=== PATIENT | female | born 1945 | race Caucasian/White ===

== ENCOUNTER 2019-10-03 18:15 | Emergency (ER) | payer OTHER ==
[~2019-10-03] VITALS: Ht 162.6 cm; Wt 66.2 kg
[2019-10-03] MEDS ORDERED: CHLORTHALIDONE25 MG (18:47)
[2019-10-03] MEDS ORDERED: COZAAR50 MG (18:47)
[2019-10-03] MEDS ORDERED: ATIVAN0.5 M1 PO (20:03)
[2019-10-03] MEDS ORDERED: BACTRIM DS TAB1 EACH PO (20:03)
== END 2019-10-03 20:35 | disposition home or self-care (01) ==
LOC: ER 18:15
DX: I16.1 Hypertensive emergency (principal); I10 Essential (primary) hypertension; N39.0 Urinary tract infection, site not specified; R42 Dizziness and giddiness